=== PATIENT | female | born 1990 | race Caucasian/White ===

== ENCOUNTER 2018-04-18 10:21 | Emergency (ER) | payer MEDICAID, OTHER ==
[2018-04-18 19:07] VITALS: BP 104/67; PULSE 78; RESP 20; TEMP 98.9; O2SAT 98
--- NOTE | 2018-04-19 09:28 | OBDCSUM ---
Datetime: 04/18/2018 12:42 Discharge Diagnosis Prov Other: Not in labor; no evidence of labor/bleeding
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
== END 2018-04-18 12:50 | disposition home or self-care (01) ==
LOC: H.EROB2 10:21
DX: O26.853 Spotting complicating pregnancy, third trimester (principal); O26.93 Pregnancy related conditions, unspecified, third trimester; R10.2 Pelvic and perineal pain; Z3A.32 32 weeks gestation of pregnancy

== ENCOUNTER 2018-06-16 07:12 | Emergency (ER) | payer MEDICAID ==
[2018-06-16 15:31] VITALS: BP 111/76; PULSE 99; RESP 18; TEMP 97.8; O2SAT 95
== END 2018-06-16 10:50 | disposition home or self-care (01) ==
LOC: H.EROB2 07:12
DX: O26.93 Pregnancy related conditions, unspecified, third trimester (principal); R10.2 Pelvic and perineal pain; O34.63 Maternal care for abnormality of vagina, third trimester; N89.8 Other specified noninflammatory disorders of vagina; Z3A.40 40 weeks gestation of pregnancy; O48.0 Post-term pregnancy

== ENCOUNTER 2018-06-19 21:59 | Inpatient (IN) | payer MEDICAID ==
[2018-06-19 22:36] VITALS: BMI 26.4
[2018-06-19] MEDS ORDERED: Lactated Ringer's 1,000 ML IV SCH (23:00)
[2018-06-19] MEDS ORDERED: Oxytocin 30 UNITS in Sodium Chloride 0.9% 500 ML IV ONE (23:10)
[2018-06-19] MEDS: Lactated Ringer's 1,000 ML IV SCH (23:30)
[2018-06-19] MEDS ORDERED: Penicillin G 5 Million Unit Vial IVPB ONE (23:49)
--- NOTE | 2018-06-19 23:52 | OBHP ---
Datetime: 06/19/2018 23:35 IP Adm Impression: Term, intrauterine IP Admit Plan: Admit to unit; Initiate protocol Admit Comment, IP Provider: 27 yo with IUP @ 40.6 weeks based on KONG of 06/13/18 presents to the OB ED with complaint of contractions every 3-4 minutes since 7pm. She states that she feels she b roke her water but denies a vaginal gush of fluid. Denies vaginal bleeding. She reports good mo vement. Patient states she has not followed with an OB since leaving [place] in April. She has no c urrent care. Patient states she is interested in . ROS: negative except for stated above. OBHX: 1 in 2011 for twins at 35.0 weeks. PMhx: Denies Family Hx: Mother from HTN. Father with hypertension and DM2. Surgical history: 2011. Allergies: N.K.D.A Medications: PNV Labs: Previous GBS bacteriuria Physical exam: Patient is in no acute distress. Heart: S1 and S2 appreciated. No murmurs, gallops or rubs. Lungs: Clear air entry bilaterally. No wheezes, rhonchi or crackles. Abdomen: Gravid, soft, non-tender to palpation. Vaginal exam: With dining services manager in room. Nitrazine test equivical. Ferning test negative. 3-4/60/-2 ( @ 22:45) FHT: 130 baseline; Minimal variability; No accelerations; No decelerations. Contractions every 4 m inutes. Assessment: 27 yo with IUP @ 40.6 weeks based on KONG of 06/13/18 presents to the OB ED with complaint of contractions every 3-4 minutes since 7pm. Plan: - Admit for possible - Given previous history of GBS bacteriuria and no current records: Penicillin will be gi galileo to patient. - Continous monitoring. - consent discussed thoroughly with patient and signed. - Patient will ask father to bring her records from home as soon as possible. - F/U CBC, Type and screen, RPR, Rapid HIV, HepBsAg, Rubella, Urine drug screen. Case seen and discussed with Dr. Griffith. --- Karen Polanco, PGY-1, Family Medicine. OB Hospitalist Addendum: Pt seen and examined by me. Agree w/ above. 27 yo yo at 40+6 wk s w/ h/o c/s for twins, scheduled for repeat c/s in the am, in labor, desires a TOLAC. VE: 3-4/ 60/- 2 w/ BBOW at 10:45 pm. Pt admitted to L_D. Pt consented for , possible repeat section, and for possible blood transfusion. (ES) Pelvic Type - PN: Adequate Extremities - PN: Normal Abdomen - PN: Normal Back - PN: Normal Breast - PN: Not Done Lungs - PN: Normal Heart - PN: Normal Thyroid - PN: Not Done Neurologic - PN: Not Done HEENT - PN: Not Done General - PN: Normal FHR - Baseline A Provider: 130 Contraction Comments Provider: Every 4 minutes Pool Provider: Negative Nitrazine Provider: Negative EGA AdmitDate IP: 41.0 IP Chief Complaint: Uterine contractions; Suspected ruptured membranes; Maternal discomfort NICHD Variability Prov Fetus A: Minimal - Undetectable to <5bpm FHR Category Provider Fetus A: Category II NICHD Decel Fetus A IP Provider: None Dilatation, Provider: 3-4 Effacement, Provider: 60 Station, Provider: -2 Genitourinary Exam: Normal DTRs - PN: Not Done Datetime: 06/19/2018 22:40 Membranes, Provider: Bulging Ferning Provider: Negative Vital Signs Provider: Reviewed; Within Normal Limits Datetime: 06/16/2018 10:55 Presentation-Admit: Vertex Comments, ACOG Physical Exam: SSE: No pooling seen, nitrazine neg, there was a small amount of thin vaginal discharge, no bleeding Gestation - Est Wks by US: 40.3 NICHD Accel Fetus A IP Provider: [id number]
--- NOTE | 2018-06-19 23:55 | OBHP ---
Datetime: 06/19/2018 23:35 Ferning Provider: Negative EGA AdmitDate IP: 41.0 Datetime: 06/19/2018 22:40 Admit Comment, IP Provider: 27 yo with IUP @ 40.6 weeks based on KONG of 06/13/18 presents to the OB ED with complaint of contractions every 3-4 minutes since 7pm. She states that she feels she b roke her water but denies a vaginal gush of fluid. Denies vaginal bleeding. She reports good mo vement. Patient states she has not followed with an OB since leaving [place] in April. She has no c urrent care. Patient states she is interested in . ROS: negative except for stated above. OBHX: 1 in 2012 for twins at 35.0 weeks. PMhx: Denies Family Hx: Mother from HTN. Father with hypertension and DM2. Surgical history: 2011. Allergies: N.K.D.A Medications: PNV Labs: Previous GBS bacteriuria Physical exam: Patient is in no acute distress. Heart: S1 and S2 appreciated. No murmurs, gallops or rubs. Lungs: Clear air entry bilaterally. No wheezes, rhonchi or crackles. Abdomen: Gravid, soft, non-tender to palpation. Vaginal exam: With fellmongering machine operator in room. Nitrazine test equivical. Ferning test negative. 3-4/60/-2 ( @ 22:45) FHT: 125 baseline; Minimal variability; No accelerations; No decelerations. Contractions every 4 m inutes. Assessment: 27 yo with IUP @ 40.6 weeks based on KONG of 06/13/18 presents to the OB ED with complaint of contractions every 3-4 minutes since 7pm. Plan: - Admit for possible - Given previous history of GBS bacteriuria and no current records: Penicillin will be gi galileo to patient. - Continous monitoring. - consent discussed thoroughly with patient and signed. - Patient will ask father to bring her records from home as soon as possible. - F/U CBC, Type and screen, RPR, Rapid HIV, HepBsAg, Rubella, Urine drug screen. Case seen and discussed with Dr. Griffith. --- Karen Polanco, PGY-1, Family Medicine. OB Hospitalist Addendum: Pt seen and examined by me. Agree w/ above. 27 yo yo at 40+6 wk s w/ h/o c/s for twins, scheduled for repeat c/s in the am, in labor, desires a TOLAC. VE: 3-4/ 60/- 2 w/ BBOW at 10:45 pm. Pt admitted to L_D. Pt consented for , possible repeat section, and for possible blood transfusion. (ES)
[2018-06-20 00:05] LABS: BASO % 0.4 % (0.0-2.0); EOS # 0.1 K/uL (0.0-0.7); EOS % 0.8 % (0.0-4.0); HEMOGLOBIN 9.6 g/dL (12.0-16.0); LYMPH # 2.1 K/uL (1.0-4.3); LYMPH % 29.3 % (20.0-40.0); MEAN CELL VOLUME 67.6 fl (81.0-99.0); MEAN CORPUSCULAR HEMOGLOBIN 21.2 pg (27.0-31.0); MEAN CORPUSCULAR HGB CONC 31.4 g/dL (33.0-37.0); MEAN PLATELET VOLUME 8.7 fl (7.2-11.7); MONO # 0.5 K/uL (0.0-0.8); MONO % 7.3 % (0.0-10.0); NEUT # 4.4 K/uL (1.8-7.0); NEUT % 62.2 % (50.0-75.0); NRBC % 0.1 % (0.0-0.0); RBC 4.52 Mil/uL (3.80-5.20); RED CELL DISTRIBUTION WIDTH 18.7 % (11.5-14.5); WHITE BLOOD COUNT 7.1 K/uL (4.8-10.8)
[2018-06-20] MEDS ORDERED: Lactated Ringer's 1,000 ML IV SCH ×4 (00:15→18:54)
[2018-06-20] MEDS: Lactated Ringer's 1,000 ML IV SCH (00:30)
[2018-06-20] MEDS ORDERED: Fentanyl/Bupivacaine HCl 250 ML EPI ONE (01:14)
[2018-06-20] MEDS ORDERED: Penicillin G 5 Million Unit Vial IVPB ONE (07:47)
--- NOTE | 2018-06-20 09:43 | OBPN ---
Datetime: 06/20/2018 08:47 IP Progress Impression: Normal progression of labor IP Informed Consent Obtain: Vaginal After IP Procedures: Sterile Vag Exam IP Progress Plan: Continue present management Membranes, Provider: Intact FHR - Baseline A Provider: 130 IP Fetus A Comments: Currently category 1, had periods of category 2 over the last hour due to minim al variability Gestation - Est Wks by US: 41.0 IP Progress Note Comment: S: Patient resting comfortably, no concerns currently O: see exam A/P: 27 yo at 41.0 here in spontaneous labor, planning for a TOLAC, now in active labor - No need for labor augmentation - Category 2 strip has resolved, no further interventions needed at this time but we will continue to monitor - Head is not well applied so AROM is contraindicated at this time but if she has not progressed a t the next cervical we will consider AROM - Continuing GBS prophylaxis for GBS bacteriuria Kiera Cuevas MD OB Fellow OB Hospitalist on-call...sign out rec'd. FHR tracing improved with last exam, scalp stim, O2, lef t lateral position. Will continue to montior progress. She understands about vs C/S incl possi ble risks/complicatoins. She had reviewed and signed consent form. She has epidural in place. IV Abx for GBS+. Agree with note...Monitor FH and labor progress. MAHNDO Vital Signs Provider: Reviewed; Within Normal Limits FHR Category Provider Fetus A: Category I NICHD Variability Prov Fetus A: Moderate 6-25bpm Dilatation, Provider: 7 Effacement, Provider: 100 Station, Provider: -1 NICHD Decel Fetus A IP Provider: None Datetime: 06/19/2018 23:35 Pool Provider: Negative Ferning Provider: Negative Contraction Comments Provider: Every 4 minutes Datetime: 06/19/2018 22:40 Nitrazine Provider: Negative Datetime: 06/16/2018 10:55 Presentation-Admit: Vertex NICHD Accel Fetus A IP Provider: [id number]
[2018-06-20] MEDS ORDERED: Lidocaine 2% MPF (5 ml) Inj ONE ×3 (10:49→14:53)
[2018-06-20] MEDS ORDERED: Oxycodone/Acetaminophen 5/325 mg Tab PO PRN ×2 (15:18→18:54)
[2018-06-20] MEDS ORDERED: Benzocaine/Menthol SPRAY TOP PRN ×2 (15:18→18:54)
[2018-06-21 06:26] LABS: HEMOGLOBIN 8.2 g/dL (12.0-16.0); MEAN CELL VOLUME 66.9 fl (81.0-99.0); MEAN CORPUSCULAR HGB CONC 31.4 g/dL (33.0-37.0); RBC 3.91 Mil/uL (3.80-5.20); RED CELL DISTRIBUTION WIDTH 19.1 % (11.5-14.5); WHITE BLOOD COUNT 17.3 K/uL (4.8-10.8)
--- NOTE | 2018-06-21 07:30 | OBDS ---
DELIVERY PERSONNEL Delivery Doctor: Floyd Stevens DO /Dr Primitivo Cuevas(OB FELLOW) Drafter Directional Survey: Delfina/Jolie Carty Anesthesiologist: Dr Luu Resident: Dr Sumner MATERNAL INFORMATION Delivery Anesthesia: Local; Epidural Medications in Delivery: Pitocin Estimated Blood Loss (ml): 400 Placenta Cultured: No Maternal Complications: None Provider Comments: 27 y/o G2 now P3 experienced over a mediolateral episiotomy on 06/20 @ 15:00 . The infant's head was delivered in a controlled manner. Amniotic fluid was mec stained. Nuchal cord X 1 was reduced. The infant's body was then delivered in the usual manner without difficulty. The in chad was placed on the maternal abdomen and delayed cord clamping was performed. The placenta deliver ed intact with 3VC followed by 30 units of Pitocin IV and uterine massage for hemostasis. EBL= 400. T he episiotomy was repaired in the usual manner. The cervix and vagina were inspected for lacs and 2 h emostatic bilateral labial lacerations were noted. The infant, viable male, Apgars 9 and 9 was taken to transitional nursey in stable condition. Mom was recovered in the room in stable condition with go od hemostasis. Kiera Cuevas MD OB Fellow OB Hospitalist on-call. For , I attended delivery. Peds present. 9,9 MAHNDO LABOR SUMMARY EDC: 06/13/2018 00:00 EDC: 06/13/2018 00:00 EDC: 06/13/2018 00:00 No. Babies in Womb: 1 Attempted: Yes Labor Anesthesia: Epidural LABOR INFORMATION Reason for Induction: Not Applicable Onset of Labor: 06/19/2018 19:00 Oxytocin: N/A Group B Beta Strep: Not Done Antibiotics # of Doses: Pen G 5mU/Pen G 2.5 mU Antibiotics Time of Last Dose: 2400,0400,0800,!200 Steroids Given: None Reason Steroids Not Administered: Not Applicable MEMBRANES Membranes Rupture Method: Spontaneous/AROM Rupture of Membranes: 06/20/2018 10:33 Length of Rupture (hrs): 4.45 Amniotic Fluid Color: Clear/light mec Amniotic Fluid Color: Clear Amniotic Fluid Color: Clear Amniotic Fluid Amount: Small Amniotic Fluid Amount: None Amniotic Fluid Odor: Normal STAGES OF LABOR Stage 3 hrs: 0 Stage 3 min: 6 Total Time in Labor hrs: 20 Total Time in Labor min: 6 VAGINAL DELIVERY Episiotomy: Right Mediolateral Laceration Extension: N/A Laceration Repair: Yes Laceration Repair Note: The episiotomy was repaired in the usual fashion with a 2-0 Vicryl. Hemostas is was adequate after repair. Initial Vag Sponge Count: laps=5 with rings and one without ring// 4X4=10 Final Vag Sponge Count: laps=5 with ring and one without ring //4x4=10 Initial Vag Sharps Count: 2 Final Vag Sharps Count: 2 Sponge Count Correct: Yes Sharps Count Correct: Yes Count Comment: correct and acknowledge BABY A INFORMATION Infant Delivery Date/Time: 06/20/2018 15:00 Method of Delivery: Vaginal Born in Route : No : Successful Forceps: N/A Vacuum Extraction: N/A Shoulder Dystocia : No SHOULDER DYSTOCIA BABY A Delivery Date/Time: 06/20/2018 15:00 PRESENTATION/POSITION BABY A Presentation: Cephalic Cephalic Presentation: Vertex Breech Presentation: N/A PLACENTA INFORMATION BABY A Placenta Delivery Time : 06/20/2018 15:06 Placenta Method of Delivery: Spontaneous Placenta Status: Delivered SCORES BABY A Heart Rate 1 min: >100 bpm Resp Effort 1 min: Good Cry Reflex Irritability 1 min: Cough or Sneeze or Pulls Away Muscle Tone 1 min: Active Motion Color 1 min: Body [place], Extremities Blue Resuscitation Effort 1 min: Tactile Stimulation SCORE 1 MIN: 9 Heart Rate 5 min: >100 bpm Resp Effort 5 min: Good Cry Reflex Irritability 5 min: Cough or Sneeze or Pulls Away Muscle Tone 5 min: Active Motion Color 5 min: Body [place], Extremities Blue Resuscitation Effort 5 min: N/A SCORE 5 MIN: 9 INFANT INFORMATION BABY A Gestational Age at Delivery: 41.0 Gestational Status: Post-term Outcome : Liveborn Condition : Stable Sex: Male IDENTIFICATION/MEDS BABY A ID Band Number: [id number] ID Band Location: Left Leg; Left Arm Vitamin K Given : Not Given Erythromycin Given: Not Given WEIGHT/LENGTH BABY A Birthweight (gms): 3605 Weight (lb): 7 Weight (oz): 15 CORD INFORMATION BABY A No. Cord Vessels: 3 Nuchal Cord : Around Neck x1, Loose Nuchal Cord Other: n/a True Knot: n/a Infant Cord pH Baby Arterial: n/a Cord pH Baby Venous: n/a Cord Blood Taken: Yes Banking/Donate Info: n/a Infant Suction: Mouth; Nose; Pharynx ASSESSMENT BABY A Infant Complications: Meconium Physical Findings at Delivery: Within Normal Limits Infant Respirations: Nasal Flaring; Sternal Retractions Blow Mold Operator/ALS Called : No Infant Care By: Dr Rocha/Yasmeen JONES/Odette Mathis Transferred To: Remains with Mother
--- NOTE | 2018-06-21 07:30 | OBDS ---
DELIVERY PERSONNEL Delivery Doctor: Floyd Stevens DO /Dr Primitivo Cuevas(OB FELLOW) Manager Architectural: Delfina/Jolie Carty Anesthesiologist: Dr Luu Resident: Dr Sumner MATERNAL INFORMATION Delivery Anesthesia: Local; Epidural Medications in Delivery: Pitocin Estimated Blood Loss (ml): 400 Placenta Cultured: No Maternal Complications: None Provider Comments: 27 y/o G2 now P3 experienced over a mediolateral episiotomy on 06/20 @ 15:00 . The infant's head was delivered in a controlled manner. Amniotic fluid was mec stained. Nuchal cord X 1 was reduced. The infant's body was then delivered in the usual manner without difficulty. The in chad was placed on the maternal abdomen and delayed cord clamping was performed. The placenta deliver ed intact with 3VC followed by 30 units of Pitocin IV and uterine massage for hemostasis. EBL= 400. T he episiotomy was repaired in the usual manner. The cervix and vagina were inspected for lacs and 2 h emostatic bilateral labial lacerations were noted. The infant, viable male, Apgars 9 and 9 was taken to transitional nursey in stable condition. Mom was recovered in the room in stable condition with go od hemostasis. Kiera Cuevas MD OB Fellow OB Hospitalist on-call. For , I attended delivery. Peds present. 9,9 MAHNDO LABOR SUMMARY EDC: 06/13/2018 00:00 No. Babies in Womb: 1 Attempted: Yes Labor Anesthesia: Epidural LABOR INFORMATION Reason for Induction: Not Applicable Onset of Labor: 06/19/2018 19:00 Oxytocin: N/A Group B Beta Strep: Not Done Antibiotics # of Doses: Pen G 5mU/Pen G 2.5 mU Antibiotics Time of Last Dose: 2400,0400,0800,!200 Steroids Given: None Reason Steroids Not Administered: Not Applicable MEMBRANES Membranes Rupture Method: Spontaneous/AROM Rupture of Membranes: 06/20/2018 10:33 Length of Rupture (hrs): 4.45 Amniotic Fluid Color: Clear/light mec Amniotic Fluid Amount: Small Amniotic Fluid Odor: Normal STAGES OF LABOR Stage 3 hrs: 0 Stage 3 min: 6 Total Time in Labor hrs: 20 Total Time in Labor min: 6 VAGINAL DELIVERY Episiotomy: Right Mediolateral Laceration Extension: N/A Laceration Repair: Yes Laceration Repair Note: The episiotomy was repaired in the usual fashion with a 2-0 Vicryl. Hemostas is was adequate after repair. Initial Vag Sponge Count: laps=5 with rings and one without ring// 4X4=10 Final Vag Sponge Count: laps=5 with ring and one without ring //4x4=10 Initial Vag Sharps Count: 2 Final Vag Sharps Count: 2 Sponge Count Correct: Yes Sharps Count Correct: Yes Count Comment: correct and acknowledge BABY A INFORMATION Infant Delivery Date/Time: 06/20/2018 15:00 Method of Delivery: Vaginal Born in Route : No : Successful Forceps: N/A Vacuum Extraction: N/A Shoulder Dystocia : No SHOULDER DYSTOCIA BABY A Infant Delivery Date/Time: 06/20/2018 15:00 PRESENTATION/POSITION BABY A Presentation: Cephalic Cephalic Presentation: Vertex Breech Presentation: N/A PLACENTA INFORMATION BABY A Placenta Delivery Time : 06/20/2018 15:06 Placenta Method of Delivery: Spontaneous Placenta Status: Delivered SCORES BABY A Heart Rate 1 min: >100 bpm Resp Effort 1 min: Good Cry Reflex Irritability 1 min: Cough or Sneeze or Pulls Away Muscle Tone 1 min: Active Motion Color 1 min: Body [place], Extremities Blue Resuscitation Effort 1 min: Tactile Stimulation SCORE 1 MIN: 9 Heart Rate 5 min: >100 bpm Resp Effort 5 min: Good Cry Reflex Irritability 5 min: Cough or Sneeze or Pulls Away Muscle Tone 5 min: Active Motion Color 5 min: Body [place], Extremities Blue Resuscitation Effort 5 min: N/A SCORE 5 MIN: 9 INFANT INFORMATION BABY A Gestational Age at Delivery: 41.0 Gestational Status: Post-term Infant Outcome : Liveborn Condition : Stable Sex: Male IDENTIFICATION/MEDS BABY A ID Band Number: [id number] ID Band Location: Left Leg; Left Arm Vitamin K Given : Not Given Erythromycin Given: Not Given WEIGHT/LENGTH BABY A Infant Birthweight (gms): 3605 Infant Weight (lb): 7 Infant Weight (oz): 15 CORD INFORMATION BABY A No. Cord Vessels: 3 Nuchal Cord : Around Neck x1, Loose Nuchal Cord Other: n/a True Knot: n/a Cord pH Baby Arterial: n/a Cord pH Baby Venous: n/a Cord Blood Taken: Yes Banking/Donate Info: n/a Suction: Mouth; Nose; Pharynx ASSESSMENT BABY A Complications: Meconium Physical Findings at Delivery: Within Normal Limits Respirations: Nasal Flaring; Sternal Retractions Care Technician/ALS Called : No Care By: Dr Rocha/Yasmeen JONES/Odette Mathis Transferred To: Remains with Mother
--- NOTE | 2018-06-21 07:30 | OBPN ---
Datetime: 06/20/2018 12:02 IP Progress Impression: Normal progression of labor IP Informed Consent Obtain: Vaginal After IP Progress Plan: Continue present management Contraction Comments Provider: Q2-3 min FHR - Baseline A Provider: 140 Gestation - Est Wks by US: 41.0 IP Progress Note Comment: S: Feeling lots of pressure with each contraction, would like to push O: Minimal variability with no accels, reflexive bradycardia with pushing A/P: 27 yo at 41.0 here in spontaneous labor, planning for a TOLAC, now in stage 2 labor, cur rently pushing - AROM approximately 1 hr ago, light meconium - Category 2 strip: currently patient has oxygen, fluids, will continue to monitor - Continue GBS prophylaxis Kiera Cuevas MD OB Fellow OB Hospitalist on-call. With OB fellow, I saw this p and FHR tracsing...O2, left lateral - LTV im proved...anticipate / MAHNDO Vital Signs Provider: Reviewed; Within Normal Limits FHR Category Provider Fetus A: Category II NICHD Variability Prov Fetus A: Minimal - Undetectable to <5bpm Dilatation, Provider: 10 Effacement, Provider: 100 Station, Provider: 0 NICHD Decel Fetus A IP Provider: None
[2018-06-21] MEDS ORDERED: Influenza Vaccine (5 YR UP)/PF 60 MCG/0.5 ML SYR IM ONE (10:00)
[2018-06-23 00:13] VITALS: BP 110/71; PULSE 75; RESP 20; TEMP 98.8; O2SAT 100
== END 2018-06-22 20:12 | disposition home or self-care (01) | DRG 373 ==
LOC: H.EROB2 21:59 → H.L&D 22:56 → H.OB/GYN 06-20 18:07
PROVIDERS: ADMIT Obstetrics & Gynecology; ATTEND Obstetrics & Gynecology
PROC: 4A1HXCZ Monitoring of Products of Conception, Cardiac Rate, External Approach (ICD-10-PCS; 2018-06-19)
PROC: 0W8NXZZ Division of Female Perineum, External Approach (ICD-10-PCS; principal; 2018-06-20)
PROC: 10E0XZZ Delivery of Products of Conception, External Approach (ICD-10-PCS; 2018-06-20)
DX: O34.219 Maternal care for unspecified type scar from previous cesarean delivery (principal); N85.8 Other specified noninflammatory disorders of uterus; Z3A.41 41 weeks gestation of pregnancy; Z37.0 Single live birth; O69.81X0 Labor and delivery complicated by cord around neck, without compression, not applicable or unspecified; O48.0 Post-term pregnancy; O77.0 Labor and delivery complicated by meconium in amniotic fluid